=== PATIENT | male | born 1990 | race Caucasian/White ===

== ENCOUNTER 2017-12-07 05:29 | Day surgery (SDC) | payer OTHER ==
[~2017-12-07] VITALS: Ht 182.9 cm; Wt 162.8 kg
--- NOTE | ~2017-12-07 | O ---
[facility] [place] [address] [address] OPERATIVE REPORT Name: AMRIT WALDEN Room #: [facility]..#: [id number] Admission: 12/07/17 Attend Phys: Sue Liriano, Discharge: 12/07/17 Date of : 89 Report #: [id number] THIS REPORT FOR: //name// CC: Ramón Liriano DATE OF SERVICE: 12/07/2017 PREOPERATIVE DIAGNOSES: 1. Right carpal tunnel syndrome. 2. Right dorsal hand mass, less than 1.5 cm. POSTOPERATIVE DIAGNOSES: 1. Right carpal tunnel syndrome. 2. Right dorsal hand mass, less than 1.5 cm. PROCEDURE PERFORMED: 1. Right open carpal tunnel release. 2. Right dorsal hand mass excision, less than 1.5 cm. SURGEON: Sue Liriano MD ANESTHESIA: General mask anesthesia. ESTIMATED BLOOD LOSS: 2 mL. COMPLICATIONS: None. CONDITION: Stable. DISPOSITION: Recovery room. SPECIMEN: Sent to pathology. INDICATIONS: The patient is a 27-year-old male with the above-mentioned diagnosis. He elects for operative treatment. The risks, benefits, alternatives, complications were discussed and included but were not limited to infection, damage to vessels or nerves, incomplete ability to remove the mass including inability to remove the mass, recurrence and infection, damage to vessels or nerves and incomplete relief of symptoms. Informed consent was obtained. The correct extremity was identified and labeled by myself after verbal confirmation of patient as well as visual confirmation and signed informed consent. DESCRIPTION OF PROCEDURE: The patient brought to the operating room and placed on the operating table in supine position. He received preoperative [address] [address] OPERATIVE REPORT Name: AMRIT WALDEN Room #: [facility]..#: [id number] Admission: 12/07/17 Attend Phys: Sue Liriano, Discharge: 12/07/17 Date of : 89 Report #: [id number] antibiotics. Tourniquet was placed over padding. The patient's right upper extremity was sterilely prepped and draped in the usual fashion. A final timeout was taken to verify correct patient, operative procedure, operative site, all concurred. The arm was elevated, but was not exsanguinated due to the mass and the tourniquet was inflated. Both the procedures were done with the aid of 3.5 times loupe magnification. Approximately a 2.5 cm incision made over the carpal tunnel in line with the ring and long finger web space. Dissection was carried down through the subcutaneous tissue with tenotomy scissors. In the mid portion of the incision the very thick transverse carpal ligament was incised with a 15 blade. The transverse carpal ligament was then transected proximally from the antebrachial fascia in the forearm all the way to the fat in the palm. The patient had an anatomic muscle variation at the distal wrist crease transversely and this made it significantly difficult for me to release the transverse carpal ligament at this level completely without potential for injuring the nerve, and so the wrist was crossed in an oblique angle in order to facilitate complete release of the transverse carpal ligament with decreasing risk of damage to his nerve. The incision in the transverse carpal ligament was ulnar to the course of median nerve. The transverse carpal ligament was transected all the way to the fat of palm. The nerve was evaluated and looked to be in good condition. The transverse carpal ligament was extremely thickened and the nerve was hyperemic, but otherwise looked to be in good condition. The wound was thoroughly irrigated. The borders of the mass were marked in the preoperative holding area under the direction of the patient; he reported that the mass has somewhat decreased in size, but elected for excision. Approximately a 1.5 cm incision was made in the thumb and index webspace over the first dorsal interosseous. Dissection was carried down through the subcutaneous tissue with tenotomy scissors. There was a large venous network superficial to the fascia. This was retracted and the fascia was incised and the muscle was incised at the point where the mass was felt to be. An extensive search was undertaken for the mass and an area that bled easily and appeared to be venous was identified. It was excised and cauterized. The wound was thoroughly irrigated. The skin was closed with 4-0 nylon suture. The wounds were infiltrated with approximately 10 mL of 0.25% Marcaine total. All wounds were dressed with Adaptic and sterile gauze and a mildly compressive dressing. All fingers were pink with brisk capillary refill at the conclusion of the case after deflation of the tourniquet. All sponge and needle counts were correct. The patient transferred to postop recovery room in stable condition. <ELECTRONICALLY SIGNED> By: Sue Liriano MD 12/21/17 1526 1721 1744 Sue Liriaon MD /nt
--- NOTE | ~2017-12-07 | S ---
[facility] [place] [address] [place] [address] SURGICAL PATH RPT PROCEDURE Name: GOMEZ RODRIGUEZ Room #: 150-5 [facility] M.R.#: [id number] Admission: 12/07/17 Date of : 89 Discharge: Report #: [id number] Path Case #: [id number] PATHOLOGY REPORT COLLECTION DATE: 12/07/2017 RECEIVED DATE: 12/07/2017 SUBMITTING PHYS: Dr. Sue Liriano OTHER PHYS: Dr. Ramón Keller SPECIMEN(S) RECEIVED: A.R dorsal hand mass * * * * * * * * * * * * FINAL DIAGNOSIS: Soft tissue mass, right dorsal hand mass, excision: - Consistent with cavernous hemangioma associated with thrombosis. - Fragments of reactive skeletal muscle. - Negative for malignancy. (IUV:jossy; 12/08/2017) PATHOLOGIST: Juliet Arora M.D. REPORT ELECTRONICALLY SIGNED BY: Juliet Arora M.D. DATE/TIME: 12/08/2017 14:12 * * * * * * * * * * * * GROSS PATHOLOGY: Received in formalin labeled "Gomez Rodriguez, right dorsal hand mass" and consists of a ragged red tissue fragment measuring 0.6 x 0.3 x 0.3 cm. The specimen is entirely submitted as A1. (ARTI; 12/07/2017) CLINICAL HISTORY: Mass right dorsal, right carpal tunnel syndrome INITIAL CPT CODE(S): A; 65942 Professional services performed by [facility] at [facility] [address] [place] [address] Technical services performed by [facility] at [address] [place] [id number]. [facility] [address] [place] [address] SURGICAL PATH RPT PROCEDURE Name: GOMEZ RODRIGUEZ JEREMY Room #: 150-5 [facility] Mina.Christopher#: [id number] Admission: 12/07/17 Date of : 89 Discharge: Report #: [id number] Path Case #: [id number] [address] PHONE: [phone] DIRECTOR: Chang Henderson M.D. * * * END OF REPORT * * *
[~2017-12-07 05:29] MED LIST: BREO ELLIPTA 11 EACH INH; COZAAR 50 MG TA50 M2 PO; MELATONIN 10 M1 EACH PO; NOHOMEMEDICATIONS; NORCO 5-325 TA1 EACH PO; PHENERGAN 25 MG25 M1 PO; PREDNISONE 20 M20 MG PO; PROTONIX40 M1 PO; PROTONIX40 MG PO; VENTOLIN HFA 1818 GM; VENTOLIN HFA 1818 GM INH; XOPENEX0.31 MG/3 IH; ZANTAC 150MG T150 M1 PO; ZOFRAN 4 MG ORAL4 MG PO
[2017-12-07 10:03] VITALS: BP 170/95
[2017-12-07 12:59] VITALS: BP 170/95
[2018-03-06] MEDS ORDERED: FLONASE 0.05%50 MCG NASAL (14:16)
[2018-03-06] MEDS ORDERED: SINGULAIR 10 MG10 M1 PO (14:16)
== END 2017-12-07 13:46 | disposition home or self-care (01) ==
LOC: OR 05:29 → TBA 05:29 → OR 11:22
DX: G56.01 Carpal tunnel syndrome, right upper limb (principal); R22.31 Localized swelling, mass and lump, right upper limb; K21.9 Gastro-esophageal reflux disease without esophagitis; Z87.891 Personal history of nicotine dependence; J45.909 Unspecified asthma, uncomplicated; I10 Essential (primary) hypertension; Z98.890 Other specified postprocedural states
CPT/HCPCS: 50010; 50101; 50386; 56526; 57006; 57091; 62110; 62900; 70005

== ENCOUNTER 2018-03-15 05:36 | Day surgery (SDC) | payer OTHER ==
[~2018-03-15] VITALS: Ht 182.9 cm; Wt 158.8 kg
--- NOTE | ~2018-03-15 | O ---
[facility] [place] [address] [address] OPERATIVE REPORT Name: AMRIT WALDEN Room #: [facility]..#: [id number] Admission: 03/15/18 Attend Phys: Sue Liriano, Discharge: 03/15/18 Date of : 89 Report #: [id number] THIS REPORT FOR: //name// CC: Ramón Liriano DATE OF SERVICE: 03/15/2018 DATE OF SURGERY: 03/15/2018. PREOPERATIVE DIAGNOSIS: Left carpal tunnel syndrome. POSTOPERATIVE DIAGNOSIS: Left carpal tunnel syndrome. PROCEDURE PERFORMED: Left open carpal tunnel release. SURGEON: Sue Liriano M.D. ANESTHESIA: Local MAC anesthesia. ESTIMATED BLOOD LOSS: Minimal. TOURNIQUET TIME: 15 minutes. COMPLICATIONS: None. CONDITION: Stable. DISPOSITION: Recovery room. INDICATIONS: The patient is a 27-year-old male with the above-mentioned diagnosis. He elects for operative treatment. The risks, benefits, alternatives and complications were discussed, that included but were not limited to infection, damage to the vessels or nerves, incomplete relief of his symptoms. Informed consent was obtained. The correct extremity was identified and labeled by myself after verbal confirmation of the patient as well as visual confirmation and signed informed consent. DESCRIPTION OF PROCEDURE: The patient was brought back to the operating room and placed on the operating table in supine position. He received preoperative antibiotics. Tourniquet was placed over the padding. The patient's left upper extremity was sterilely prepped and draped in the usual fashion. Final timeout was taken to verify the correct patient, operative procedure, operative site and all concurred. After adequate sedation was achieved, approximately 8 mL of mixture of 0.25% Marcaine and 1% lidocaine was injected subcutaneously at the proposed incision site. After adequate anesthesia was obtained, the arm was [address] [address] OPERATIVE REPORT Name: AMRIT WALDEN Room #: DEP [facility]#: [id number] Admission: 03/15/18 Attend Phys: Sue Liriano, Discharge: 03/15/18 Date of : 89 Report #: [id number] elevated, exsanguinated and the tourniquet was inflated. The entire procedure was done with a 3.5 times loupe magnification. Next, a 2.5-cm incision was made over the carpal tunnel in line with the ring and long finger web space. Dissection was carried down through the subcutaneous tissues with tenotomy scissors. The very thick transverse carpal ligament in the mid portion was identified and incised with 15 blade. The transverse carpal ligament was very thick and it was transected proximally from the antebrachial fascia in the palm, all the way to the fat in the palm. The incision was ulnar to the course of the median nerve to decrease postoperative scarring. After a complete release of the very thick transverse carpal ligament, the nerve was evaluated and it looked to be in good condition. It was somewhat hyperemic. The wound was thoroughly irrigated. Skin was closed with 4-0 nylon suture. Wound was dressed with Adaptic and sterile gauze. He was placed in a bulky dressing. All fingers were pink with brisk capillary refill at the conclusion of the case after deflation of the tourniquet. All sponge and needle counts were correct. The patient transferred to postoperative recovery room in stable condition. By: 1345 1434 Sue Liriano MD /nt
[~2018-03-15 05:36] MED LIST changes: +FLONASE 0.05%50 MCG NASAL; +SINGULAIR 10 MG10 M1 PO
[2018-03-15 10:40] VITALS: BP 116/92
[2018-03-15 12:48] VITALS: BP 116/92
== END 2018-03-15 13:23 | disposition home or self-care (01) ==
LOC: OR 05:36 → TBA 05:37 → OR 09:08
DX: G56.02 Carpal tunnel syndrome, left upper limb (principal); I10 Essential (primary) hypertension; J45.909 Unspecified asthma, uncomplicated; G47.33 Obstructive sleep apnea (adult) (pediatric); K21.9 Gastro-esophageal reflux disease without esophagitis; Z98.890 Other specified postprocedural states; Z87.891 Personal history of nicotine dependence; Z79.899 Other long term (current) drug therapy
CPT/HCPCS: 50010; 50101; 50386; 56526; 57006; 57091; 62110; 62850; 70005

== ENCOUNTER → 2019-09-25 | Outpatient (CLI) | payer OTHER | LOC: ULTRA 14:49 | DX: R22.42 Localized swelling, mass and lump, left lower limb (principal) ==

== ENCOUNTER → 2020-07-16 | Outpatient (CLI) | payer OTHER | LOC: LAB 08:47 | PROVIDERS: ATTEND Nurse Practitioner | DX: Z20.828 Contact with and (suspected) exposure to other viral communicable diseases (principal) ==